=== PATIENT | male | born 1970 | race Caucasian/White ===

== ENCOUNTER 2017-02-02 17:16 | Emergency (ER) | payer OTHER ==
--- NOTE | 2017-02-02 19:21 | UC ---
Skin Complaint HPI - History of Current Complaint Chief Complaint: UCLowerExtremity Time Seen by Provider: 02/02/17 19:12 Stated Complaint: RIGHT LEG (? CELLULITIS) Hx Obtained From: Patient Onset/Duration: Gradual Onset, Lasting Weeks - 2, Still Present - started lower in the right lower leg with some redness now a little higher rash with some swelling in the leg. - Allergy/Home Medications Allergies/Adverse Reactions: Allergies Allergy/AdvReac Type Severity Reaction Status Date / Time Penicillins AdvReac Intermediate Diarrhea Verified 05/28/15 11:12 Home Medications: Home Medications Ascorbic Acid TAB* [Vitamin C TAB*] 500 mg PO DAILY 02/02/17 [History Confirmed 02/02/17] Glucosamine-Chondroitin [Glucosamine & Chondroitin 500-400 mg] 1 cap PO DAILY [History Confirmed 02/02/17] Krill Oil [Gnp Krill Oil [place]-3 300 mg] 1 cap PO DAILY 02/02/17 [History Confirmed 02/02/17] Multivitamins/Minerals TAB* [Thera M Plus TAB*] 1 tab PO DAILY 02/02/17 [ History Confirmed 02/02/17] Review of Systems Skin: Rash All Other Systems Reviewed And Are Negative: Yes PMH/Surg Hx/FS Hx/Imm Hx Cardiovascular History: Hypertension - Surgical History Surgical History: None - Family History Known Family History: Positive: Hypertension, Diabetes Negative: Cardiac Disease - Social History Occupation: Employed Full-time Lives: With Family Alcohol Use: Weekly Alcohol Amount: weekends Substance Use Type: None Smoking Status (MU): Former Smoker Amount Used/How Often: 1/2 ppd or more Length of Time of Smoking/Using Tobacco: ~ 20 years Physical Exam Triage Information Reviewed: Yes Appearance: Well-Appearing, No Pain Distress, Well-Nourished Vital Signs: Initial Vital Signs Temp 98.0 F 02/02/17 18:48 Pulse 76 02/02/17 18:48 Resp 14 02/02/17 18:48 BP 179/103 02/02/17 18:48 Pulse Ox 99 02/02/17 18:48 Vital Signs Reviewed: Yes Eyes: Positive: Conjunctiva Clear Neck exam: Normal Respiratory Exam: Normal Cardiovascular Exam: Normal Musculoskeletal: Positive: Edema @ - bilateral 2-3+ pretibial edema., Other: - Negative homans. Neurological Exam: Normal Psychological Exam: Normal Skin: Positive: rashes - papular rash in a 3/4 semicircle around the lower calf. Course/Dx - Differential Diagnoses - Skin Complaint Differential Diagnoses: Contact Dermatitis, Impetigo, Lymphangitis - Diagnoses Provider Diagnoses: Contact dermatitis. Discharge - Discharge Plan Condition: Stable Disposition: HOME Prescriptions: Betamethasone Dipropionate (To [Betamethasone Dipropionat] 0.05 % TOPICAL BID PRN #[id number] PRN Reason: Itching Patient Education Materials: Contact Dermatitis (ED), Betamethasone Dipropionate (On the skin) Referrals: No Primary Care Phys,NOPCP [Primary Care Provider] - 2 Days (to follow up blood pressure)
[2017-02-02 19:40] VITALS: BP 162/101
== END 2017-02-02 19:40 | disposition home or self-care (01) ==
LOC: UCCORT 17:16
DX: L25.9 Unspecified contact dermatitis, unspecified cause (principal); I10 Essential (primary) hypertension; Z87.891 Personal history of nicotine dependence
CPT/HCPCS: 99212; G0463